=== PATIENT | male | born 1965 | race African-American/Black ===

== ENCOUNTER 2023-11-30 20:40 | Inpatient (IN) | payer OTHER ==
[2023-11-30 21:29] VITALS: BMI 25.0
[2023-11-30] MEDS ORDERED: BENZOCAINE/MENTHOL (CHLORASEPTIC ) LOZENGE MM PRN (22:19)
[2023-11-30] MEDS ORDERED: NICOTINE POLACRILEX 4 MG GUM BUC PRN (22:19)
[2023-11-30] MEDS ORDERED: MAG HYDROX/AL HYDROX/SIMETH 30 ML UNIT-DOSE CUP PO PRN (22:19)
[2023-11-30] MEDS ORDERED: BISMUTH SUBSALICYLATE 524 MG/30 ML PO PRN (22:19)
[2023-11-30] MEDS ORDERED: POLYETHYLENE GLYCOL (HEALTHYLAX) 3350 17 GM PACKET PO PRN (22:19)
[2023-11-30] MEDS ORDERED: guaiFENesin 600 MG TABLET.ER (FP) PO PRN (22:19)
[2023-11-30] MEDS ORDERED: IBUPROFEN 600 MG TABLET (FP) PO PRN (22:19)
[2023-11-30] MEDS ORDERED: BENZONATATE 200 MG CAPSULE PO PRN (22:19)
[2023-11-30] MEDS ORDERED: NALOXONE (NARCAN) HCL 4 MG/0.1 ML SPRAY NS PRN (22:19)
[2023-11-30] MEDS ORDERED: DICYCLOMINE HCL 10 MG CAPSULE PO PRN (22:19)
[2023-11-30] MEDS ORDERED: NALOXONE HCL 0.4 MG/ML VIAL IM PRN (22:19)
[2023-11-30] MEDS ORDERED: IBUPROFEN 400 MG TABLET (FP) PO PRN (22:19)
[2023-11-30] MEDS ORDERED: MAGNESIUM HYDROX 2400MG/30ML ORAL SUSPENSION 30 ML CUP PO PRN (22:19)
[2023-11-30] MEDS: hydrOXYzine PAMOATE 25 MG CAPSULE (FP) PO PRN (23:41)
[2023-12-01] MEDS: PRENATAL VITAMINS W/ FOLIC ACID TABLET (FP) PO SCH (10:38)
[2023-12-01] MEDS: NICOTINE 21 MG/24 HOURS TOPICAL PATCH TD SCH (10:38)
[2023-12-01] MEDS ORDERED: methaDONE HCL 10 MG TABLET PO SCH (11:45)
[2023-12-01] MEDS: methaDONE 40 MG, methaDONE 10 MG PO SCH (11:58)
[2023-12-01] MEDS: chlordiazePOXIDE HCL 25 MG CAPSULE PO SCH (11:58)
[2023-12-01 12:06] LABS: CHLORIDE 107 mmol/L (98-107); POTASSIUM 4.3 mmol/L (3.5-5.1); SODIUM 141 mmol/L (136-145)
[2023-12-01 12:10] LABS: HEMATOCRIT 34.5 % (35.4-49); HEMOGLOBIN 11.5 GM/dL (11.7-16.9); MCH 31.2 pg (25.7-33.7); MCHC 33.4 g/dl (32.0-35.9); MEAN CELL VOLUME 93.3 fl (80-96); PLATELET COUNT 213 10^3/uL (134-434); RDW 13.9 % (11.9-15.9); WHITE BLOOD COUNT 4.6 K/mm3 (4.0-10.0)
[2023-12-01 12:10] LABS: ALBUMIN 3.5 g/dl (3.4-5.0); ANION GAP 4 mmol/L (4-13); CO2 30 mmol/L (21-32); GLUCOSE,RANDOM 105 mg/dL (74-106)
[2023-12-01 12:11] LABS: BLOOD UREA NITROGEN 16.1 mg/dL (7-18)
[2023-12-01 12:13] LABS: CREATININE 1.1 mg/dL (0.55-1.3); SGPT/ALT 75 U/L (13-61)
[2023-12-01 12:14] LABS: BILIRUBIN,TOTAL 0.4 mg/dL (0.2-1); SGOT/AST 77 U/L (15-37); TOT PROT 6.6 g/dl (6.4-8.2)
[2023-12-01 12:16] LABS: ALK PHOS 78 U/L (45-117)
[2023-12-01] MEDS: chlordiazePOXIDE HCL 25 MG CAPSULE PO PRN (15:07)
[2023-12-01] MEDS: cloNIDine HCL 0.1 MG TABLET PO PRN (15:18)
[2023-12-01] MEDS: THIAMINE 100 MG TABLET PO SCH (22:24)
[2023-12-01] MEDS: MELATONIN 5 MG TABLETS PO SCH (22:24)
[2023-12-02] MEDS: ONDANSETRON *ODT* 4 MG TABLET SL PRN (14:00)
[2023-12-02] MEDS: ACETAMINOPHEN 325 MG TABLET (FP) PO PRN (20:31)
[2023-12-03] MEDS: chlordiazePOXIDE HCL 25 MG CAPSULE PO SCH (06:00)
[2023-12-04] MEDS ORDERED: chlordiazePOXIDE HCL 10 MG CAPSULE PO PRN
[2023-12-04] MEDS: chlordiazePOXIDE HCL 10 MG CAPSULE PO SCH (05:49)
[2023-12-05] MEDS: chlordiazePOXIDE HCL 10 MG CAPSULE PO SCH (05:39)
[2023-12-06] MEDS: chlordiazePOXIDE HCL 10 MG CAPSULE PO ONE ×2 (05:55→17:21)
[2023-12-06] MEDS: LOPERAMIDE HCL 2 MG CAPSULE PO PRN (09:51)
[2023-12-07] MEDS: chlordiazePOXIDE HCL 10 MG CAPSULE PO ONE (05:46)
[2023-12-07 09:09] VITALS: BP 140/85; PULSE 80; RESP 16; TEMP 97.5
== END 2023-12-07 10:12 | disposition home or self-care (01) | DRG 897 ==
LOC: YASAS 20:40 → Y3N 23:07
PROVIDERS: ADMIT Allergy & Immunology; ATTEND Surgery
PROC: HZ2ZZZZ Detoxification Services for Substance Abuse Treatment (ICD-10-PCS; principal; 2023-11-30)
DX: F10.230 Alcohol dependence with withdrawal, uncomplicated (principal); F11.20 Opioid dependence, uncomplicated; F17.210 Nicotine dependence, cigarettes, uncomplicated; I10 Essential (primary) hypertension; Z86.11 Personal history of tuberculosis
CPT/HCPCS: 36415; 71046-TC-FY; 80053; 80305; 80307; 85027; 86780; 93005; 93010; Q0162

== ENCOUNTER 2024-07-18 20:29 | Inpatient (IN) | payer OTHER ==
[2024-07-18 21:26] VITALS: BMI 19.0
[2024-07-18] MEDS ORDERED: MAGNESIUM HYDROX 2400MG/30ML ORAL SUSPENSION 30 ML CUP PO PRN (22:32)
[2024-07-18] MEDS ORDERED: MAG HYDROX/AL HYDROX/SIMETH 30 ML UNIT-DOSE CUP PO PRN (22:32)
[2024-07-18] MEDS ORDERED: DICYCLOMINE HCL 10 MG CAPSULE PO PRN (22:32)
[2024-07-18] MEDS ORDERED: BENZONATATE 200 MG CAPSULE PO PRN (22:32)
[2024-07-18] MEDS ORDERED: BISMUTH SUBSALICYLATE 524 MG/30 ML PO PRN (22:32)
[2024-07-18] MEDS ORDERED: IBUPROFEN 400 MG TABLET (FP) PO PRN (22:32)
[2024-07-18] MEDS ORDERED: NICOTINE POLACRILEX 2 MG GUM BUC PRN (22:32)
[2024-07-18] MEDS ORDERED: BENZOCAINE/MENTHOL (CHLORASEPTIC ) LOZENGE MM PRN (22:32)
[2024-07-18] MEDS ORDERED: NALOXONE (NARCAN) HCL 4 MG/0.1 ML SPRAY NS PRN (22:32)
[2024-07-18] MEDS ORDERED: POLYETHYLENE GLYCOL (HEALTHYLAX) 3350 17 GM PACKET PO PRN (22:32)
[2024-07-18] MEDS ORDERED: guaiFENesin 600 MG TABLET.ER (FP) PO PRN (22:32)
[2024-07-18] MEDS ORDERED: ONDANSETRON *ODT* 4 MG TABLET SL PRN (22:32)
[2024-07-18] MEDS ORDERED: LOPERAMIDE HCL 2 MG CAPSULE PO PRN (22:32)
[2024-07-18] MEDS ORDERED: methaDONE HCL 10 MG TABLET (FOR DETOX USE ONLY) PO PRN (22:35)
[2024-07-18] MEDS ORDERED: cloNIDine HCL 0.1 MG TABLET PO PRN (22:35)
[2024-07-19] MEDS ORDERED: methaDONE HCL 10 MG TABLET (FOR DETOX USE ONLY) ONE (00:01)
[2024-07-19] MEDS ORDERED: MELATONIN 5 MG TABLETS ONE (00:02)
[2024-07-19] MEDS: methaDONE HCL 10 MG TABLET (FOR DETOX USE ONLY) PO ONE (00:13)
[2024-07-19] MEDS: NICOTINE 21 MG/24 HOURS TOPICAL PATCH TD SCH (09:41)
[2024-07-19] MEDS: PRENATAL VITAMINS W/ FOLIC ACID TABLET (FP) PO SCH (09:42)
[2024-07-19 11:29] LABS: HEMATOCRIT 27.4 % (35.4-49); HEMOGLOBIN 8.8 GM/dL (11.7-16.9); MCH 29.5 pg (25.7-33.7); MCHC 32.1 g/dl (32.0-35.9); MEAN PLT VOLUME 6.7 fl (7.5-11.1); PLATELET COUNT 277 10^3/uL (134-434); RBC 2.98 M/mm3 (4.00-5.60); RDW 14.9 % (11.9-15.9); WHITE BLOOD COUNT 4.1 K/mm3 (4.0-10.0)
[2024-07-19 11:34] LABS: CHLORIDE 110 mmol/L (98-107); POTASSIUM 4.2 mmol/L (3.5-5.1); SODIUM 144 mmol/L (136-145)
[2024-07-19 11:38] LABS: ALBUMIN 2.8 g/dl (3.4-5.0); ANION GAP 1 mmol/L (4-13); BLOOD UREA NITROGEN 16.2 mg/dL (7-18); CALCIUM 8.5 mg/dL (8.5-10.1); CO2 32 mmol/L (21-32); GLUCOSE,RANDOM 86 mg/dL (74-106)
[2024-07-19 11:41] LABS: CREATININE 0.8 mg/dL (0.55-1.3); SGOT/AST 19 U/L (15-37); SGPT/ALT 19 U/L (13-61)
[2024-07-19 11:43] LABS: BILIRUBIN,TOTAL 0.5 mg/dL (0.2-1); TOT PROT 5.9 g/dl (6.4-8.2)
[2024-07-19 11:44] LABS: ALK PHOS 109 U/L (45-117)
[2024-07-19] MEDS: ATENOLOL 50 MG TABLET (FP) PO SCH (12:25)
[2024-07-19] MEDS: CYPROHEPTADINE HCL 4 MG TABLET PO SCH (12:27)
[2024-07-19] MEDS ORDERED: methaDONE HCL 10 MG TABLET PO ONE (16:37)
[2024-07-19] MEDS: THIAMINE 100 MG TABLET PO SCH (23:15)
[2024-07-19] MEDS: MELATONIN 5 MG TABLETS PO SCH (23:15)
[2024-07-19] MEDS: METHOCARBAMOL 500 MG TABLET PO PRN (23:15)
[2024-07-20] MEDS: methaDONE 40 MG, methaDONE 10 MG PO ONE (09:13)
[2024-07-20] MEDS ORDERED: methaDONE HCL 10 MG TABLET (FOR DETOX USE ONLY) PO ONE (10:00)
[2024-07-20 12:14] LABS: IRON SERUM 75 ug/dL (50-175); TOTAL IRON BINDING CAPACITY 273 ug/dL (250-450)
[2024-07-20] MEDS: cloNIDine HCL 0.1 MG TABLET PO PRN (23:06)
[2024-07-21] MEDS: methaDONE 40 MG, methaDONE 20 MG PO ONE (09:15)
[2024-07-21] MEDS: hydrOXYzine PAMOATE 25 MG CAPSULE (FP) PO PRN (14:20)
[2024-07-21] MEDS: IBUPROFEN 600 MG TABLET (FP) PO PRN (14:21)
[2024-07-21] MEDS: ACETAMINOPHEN 325 MG TABLET (FP) PO PRN (17:43)
[2024-07-22] MEDS: methaDONE 40 MG, methaDONE 30 MG PO ONE (09:37)
[2024-07-22] MEDS ORDERED: methaDONE HCL 10 MG TABLET (FOR DETOX USE ONLY) PO ONE (10:00)
[2024-07-22 13:40] LABS: BASO % 0.6 % (0-2.0); EOS % 4.6 % (0-4.5); HEMATOCRIT 29.6 % (35.4-49); HEMOGLOBIN 9.6 GM/dL (11.7-16.9); LYMPH % 35.1 % (8-40); MCH 30.1 pg (25.7-33.7); MCHC 32.5 g/dl (32.0-35.9); MEAN CELL VOLUME 92.6 fl (80-96); MEAN PLT VOLUME 7.1 fl (7.5-11.1); MONO % 4.2 % (3.8-10.2); NEUT % 55.5 % (42.8-82.8); PLATELET COUNT 278 10^3/uL (134-434); RDW 15.6 % (11.9-15.9); WHITE BLOOD COUNT 4.6 K/mm3 (4.0-10.0)
[2024-07-22 21:20] VITALS: RESP 18
[2024-07-23 07:06] VITALS: BP 128/86; PULSE 76; TEMP 98.4
[2024-07-23] MEDS ORDERED: methaDONE HCL 40 MG DISPERSABLE TABLET PO ONE (10:00)
== END 2024-07-23 06:25 | disposition home or self-care (01) | DRG 897 ==
LOC: YASAS 20:29 → Y6N 23:30
PROVIDERS: ADMIT Allergy & Immunology; ATTEND Allergy & Immunology
PROC: HZ2ZZZZ Detoxification Services for Substance Abuse Treatment (ICD-10-PCS; principal; 2024-07-18)
DX: F10.230 Alcohol dependence with withdrawal, uncomplicated (principal); F14.20 Cocaine dependence, uncomplicated; Z68.1 Body mass index [BMI] 19.9 or less, adult; F12.20 Cannabis dependence, uncomplicated; F17.210 Nicotine dependence, cigarettes, uncomplicated; I10 Essential (primary) hypertension; K40.90 Unilateral inguinal hernia, without obstruction or gangrene, not specified as recurrent; R63.6 Underweight; Z86.11 Personal history of tuberculosis
CPT/HCPCS: 36415; 80053; 80305; 80307; 82607; 82728; 82747; 83540; 83550; 85014; 85025; 85027; 86780; 93005; 93010